=== PATIENT | female | born 1985 | race Caucasian/White ===

== ENCOUNTER 2016-10-27 16:49 | Emergency (ER) | payer OTHER, BC ==
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
[2016-10-27 20:33] VITALS: BP 129/68
== END 2016-10-27 20:33 | disposition home or self-care (01) ==
LOC: ER 16:49
DX: R07.81 Pleurodynia (principal); R07.1 Chest pain on breathing; M25.512 Pain in left shoulder; R10.12 Left upper quadrant pain; V48.5XXA Car driver injured in noncollision transport accident in traffic accident, initial encounter
CPT/HCPCS: 71260; 74177; 99284